=== PATIENT | female | born 1960 | race Caucasian/White ===

== ENCOUNTER 2022-02-06 20:59 | Emergency (ER) | payer MEDICAID ==
[~2022-02-06] VITALS: Ht 177.8 cm; Wt 104.3 kg
--- NOTE | 2022-02-06 21:33 | NUR ---
Pt to ED w/ c/o left wrist pain 8/ s/p ground level mechanical fall. Pt denies LOC/head trauma. Pt able to supinate and pronate wrist well. Mild swelling to left hand and wrist. Pt states "I feel a bit of tingles to my left hand".
[2022-02-06 21:36] VITALS: BP_SYST 149
--- NOTE | 2022-02-06 23:14 | NUR ---
Patient to [facility] for evaluation. Side rails up. Report given to THU SALAZAR.
[2022-02-07] MEDS ORDERED: ACETAMINOPHEN 325 MG TABLET PO ONE (00:15)
--- NOTE | 2022-02-07 00:40 | NUR ---
Pt to radiology via wheelchair accompanied by staff.
--- NOTE | 2022-02-07 00:58 | NUR ---
Pt return from radiology via wheelchair accompanied by staff.
[2022-02-07] MEDS ORDERED: TRAM50TA2 PO (01:24)
[2022-02-07 01:40] VITALS: BP_SYST 167
--- NOTE | 2022-02-07 01:40 | NUR ---
Patient given written and verbal discharge instructions and verbalizes understanding. ER Dr. Pinedo discussed with patient the results and treatment provided. Patient in stable condition. ID arm band removed. Rx of tramadol given. Patient educated on pain management and to follow up with PMD. Pain Scale 3. Opportunity for questions provided and answered. Medication side effect fact sheet provided.
== END 2022-02-07 01:40 | disposition home or self-care (01) ==
LOC: SED 20:59
DX: S69.92XA Unspecified injury of left wrist, hand and finger(s), initial encounter (principal); E78.00 Pure hypercholesterolemia, unspecified; I10 Essential (primary) hypertension; W01.0XXA Fall on same level from slipping, tripping and stumbling without subsequent striking against object, initial encounter; Y93.89 Activity, other specified; Y92.89 Other specified places as the place of occurrence of the external cause; Y99.8 Other external cause status
CPT/HCPCS: 73200-TC; 76376; 99284

== ENCOUNTER 2023-03-09 22:58 | Emergency (ER) | payer MEDICAID ==
[~2023-03-09] VITALS: Ht 175.3 cm; Wt 105.2 kg
[~2023-03-09 22:58] MED LIST: TRAM50TA2 PO
[2023-03-09 23:03] VITALS: BP_SYST 179; PULSE 86; RESP 20; O2SAT 96
[2023-03-10] MEDS ORDERED: ACETAMINOPHEN 500 MG TABLET PO ONE (00:15)
[2023-03-10] MEDS ORDERED: ONDANSETRON 4 MG ODT TAB PO ONE (00:15)
[2023-03-10 04:19] VITALS: BP_SYST 155; PULSE 76; RESP 20; O2SAT 96
== END 2023-03-10 04:19 | disposition home or self-care (01) ==
LOC: SED 22:58
DX: S01.81XA Laceration without foreign body of other part of head, initial encounter (principal); E78.00 Pure hypercholesterolemia, unspecified; I10 Essential (primary) hypertension; Z79.899 Other long term (current) drug therapy; W18.40XA Slipping, tripping and stumbling without falling, unspecified, initial encounter; Y93.89 Activity, other specified; Y92.89 Other specified places as the place of occurrence of the external cause; Y99.8 Other external cause status
CPT/HCPCS: 99284; 70450; 76376; 12011; Q0162